=== PATIENT | female | born 1985 | race Caucasian/White ===

== ENCOUNTER → 2024-07-08 15:34 | Outpatient (BNVA) | payer MEDICAID, SELFPAY | PROVIDERS: Family Provider Urology; PCP Urology; Visit Provider Nurse Practitioner Women's Health | DX: N93.9 Abnormal uterine and vaginal bleeding, unspecified (principal) | CPT/HCPCS: 85025 ==

== ENCOUNTER → 2024-07-13 10:04 | Outpatient (BNVA) | payer MEDICAID, SELFPAY | PROVIDERS: Family Provider Urology; PCP Urology; Visit Provider Nurse Practitioner Women's Health | DX: N92.5 Other specified irregular menstruation (principal) | CPT/HCPCS: 76830 ==

== ENCOUNTER → 2024-08-03 16:43 | Outpatient (BNVA) | payer MEDICAID, SELFPAY | PROVIDERS: PCP Urology; Visit Provider Obstetrics & Gynecology | DX: N93.9 Abnormal uterine and vaginal bleeding, unspecified (principal) | CPT/HCPCS: 80053; 84443; 85025 ==

== ENCOUNTER 2024-08-04 08:56 | Day surgery (SDC) | payer MEDICAID, SELFPAY ==
[2024-08-04] VITALS (18 sets, daily range): BP systolic 150–191; BP diastolic 74–103; PULSE 62–103; RESP 13–27; TEMP 36.1–36.6; O2SAT 92–99; BMI 31.2
--- NOTE | 2024-08-04 01:04 | P.HP_ITS ---
Same Day Surgery H&P Indication for Procedure/HPI DATE OF PROCEDURE: August 04, 2024 CHIEF COMPLAINT/INDICATIONFOR SURGICAL PROCEDURE: abnormal uterine bleeding PREOP DIAGNOSIS: abnormal uterine bleeding PLANNED PROCEDURE: Operation Date: 08/04/24 10:20 Proposed Procedures p Hysteroscopy w/ Endometrial Sampling 43452, 85870, N93.9, N94.4(Not Applicabl e) - Sky Driscoll MD s possible endometrial polyp sampling(Not Applicable) - Sky Driscoll MD s Endometrial Ablation(Not Applicable) - Sky Driscoll MD 39 y.o. with prolonged uterine bleeding now scheduled for hysteroscopy, endometrial sampling, possible endometrial polypectomy; endometrial ablation Medications/Allergies* Allergies/Adverse Reactions Allergy/AdvReac Type Severity Reaction Status Date / Time Penicillins Allergy ADR-Itching Verified 07/27/24 10:33 Pertinent History/Comorbid Conditions* Surgical History (Updated 07/08/24 @ 14:59 by Amanda Mcfarland NP) History of tubal ligation History of appendectomy Family History (Updated 07/08/24 @ 14:34 by Therese Loaiza CMA) Denies family history of Colon cancer Ovarian cancer Diabetes Heart disease Hyperlipidemia Breast cancer Hypertension Uterine cancer Thyroid disease Stroke Social History Smoking and tobacco/nicotine status: never used tobacco/nicotine Pertinent Exam Findings alert, oriented x 3, clear to auscultation bilaterally and regular rate & rhythm Recommendations Surgery/Procedure today Coding Level of Care Code Acute Code for Chg Fwd
[2024-08-04 09:18] LABS: OR HCG Qualitative Urine Negative (Negative)
[2024-08-04] MEDS: scopolamine 1 mg PATCH 1 PATCH TRANSDERMA (09:27)
[2024-08-04] MEDS: sodium chloride 0.9% 1,000 ML 30 ML IV (09:29)
--- NOTE | 2024-08-04 09:38 | W.PM.OPSUD ---
Surgery/Procedure H&P Update DATE OF PROCEDURE: August 04, 2024 DATE H&P PERFORMED: 08/04/24 H&P UPDATE INFORMATION: I have reviewed H&P completed within last 30 days, I have examined patient prior to procedure and No changes to prior documentation PREOP DIAGNOSIS: abnormal uterine bleeding PLANNED PROCEDURE: Operation Date: 08/04/24 10:20 Proposed Procedures p Hysteroscopy w/ Endometrial Sampling 55447, 09237, N93.9, N94.4(Not Applicable) - Sky Driscoll MD s possible endometrial polyp sampling(Not Applicable) - Sky Driscoll MD s Endometrial Ablation(Not Applicable) - Sky Driscoll MD
--- NOTE | 2024-08-04 10:07 | ANES.PREANE2 ---
Pre-Anesthetic Assessment Height/Weight: Height 5 ft 2 in Weight 171 lb Temp Pulse Resp BP Pulse Ox O2 Del Method 97.8 F 102 H 16 158/102 99 Room Air 08/04/24 09:14 08/04/24 09:14 08/04/24 09:14 08/04/24 09:14 08/04/24 09:14 08/04/24 09:14 Preop Diagnosis: abnormal uterine bleeding Operation Date: 08/04/24 10:20 Proposed Procedures p Hysteroscopy w/ Endometrial Sampling 58109, 66262, N93.9, N94.4(Not Applicable) - Sky Driscoll MD s possible endometrial polyp sampling(Not Applicable) - Sky Driscoll MD s Endometrial Ablation(Not Applicable) - Sky Driscoll MD Was Beta Marianne taken within 24 hours: N/A Was Clonidine taken within 24 hours: N/A Last intake: Intake Last Liquid Date 08/03/24 Last Liquid Time 21:00 Last Solid Date 08/03/24 Last Solid Time 18:00 Social No alcohol and No tobacco Exam alert, oriented x 3, clear to auscultation bilaterally and regular rate & rhythm Airway Submandibular: within normal limits Cervical ROM: within normal limits Mallampati: Class II Dentition: full Anesthetic Plan ASA status: 1 Anesthesia: General Other: No prior issues with anesthesia NPO since yesterday evening Denies any cardiac or pulmonary issues METs greater than 4 Plan for general anesthesia Medications/Allergies Home Medications ?Medication ?Instructions ?Recorded ?Confirmed ?Last Taken ?Type medroxyprogesterone 10 mg tablet 10 mg PO BID #60 tabs 07/27/24 08/03/24 08/03/24 Rx (Provera) Allergies Allergy/AdvReac Type Severity Reaction Status Date / Time Penicillins Allergy ADR-Itching Verified 07/27/24 10:33 Current Medications Generic Name Dose Route Start Last Admin Trade Name Freq PRN Reason Stop Dose Admin Sodium Chloride 1,000 mls @ 30 mls/hr 08/04/24 09:15 08/04/24 09:29 Sodium Chloride 0.9% IV 08/05/24 09:14 30 mls/hr .Q24H KING Administration PFSH Anesthesia Surgical History History of tubal ligation History of appendectomy Family History Denies family history of Colon cancer Ovarian cancer Diabetes Heart disease Hyperlipidemia Breast cancer Hypertension Uterine cancer Thyroid disease Stroke Social History Smoking and tobacco/nicotine status: never used tobacco/nicotine Female Reproductive History Date of last menstrual period: 07/11/24 Data Anesthesia Cardiac Studies: No Data to Display
[2024-08-04] MEDS: fentaNYL 50 mcg/mL INJ 2mL IVP ×2 (11:27→11:43)
[2024-08-04] MEDS: hyDRALAzine 20 mg/mL INJ 1 mL 10 MG IVP (12:04)
--- NOTE | 2024-08-04 12:05 | P.OP_ITS ---
Operative Report Date of procedure: August 04, 2024 Pre-op diagnosis: heavy menstrual bleeding Post-op diagnosis: same Post-op findings: 3 cm endocervical polyp minimal endometrial tissue intact endometrial cavity following endometrial ablation adequate global charring following endometrial ablation Procedure done: Removal of endocervical polyp Hysteroscopy Endometrial curettage Endometrial ablation with Novasure device Implants: none Specimens removed/disposition: endocervical polyp endometrial tissue Surgeon: Sky Driscoll MD Anesthesia: MAC Estimated blood loss (mL): 0 Complications: none Findings: 3 cm endocervical polyp minimal endometrial tissue intact endometrial cavity following endometrial ablation adequate global charring following endometrial ablation Condition: stable Disposition: PACU Brief History: 39 y.o. with heavy and prolonged uterine bleeding Procedure: Informed consent signed. Patient was taken to the operating room. Anesthesia was induced. Patient was placed in dorsolithotomy position, prepped and draped for hysteroscopy. A bivalve speculum was placed in the vagina. There was a 3 cm endocervical polyp seen, this was removed. The anterior lip of the cervix was grasped with a sharp-toothed tenaculum. The cervix was widely open. A hysteroscope was placed into the endometrial cavity. The endometrial cavity was seen to be normal. There was minimal endometrial tissue. The hysteroscope was then removed. Endometrial curettage was done and endometrial tissue was sent to path ology. Endometrial ablation was then performed using the Novasure device. The Novasure device was then primed and inserted into the endometrial cavity. The cervical occlusion sleeve was advanced. Cavity integrity test was done. The device was activated for 100 seconds. The Novasure device was then removed. Repeat hysteroscopy showed an intact endometrial cavity with adequate global endometrial ablation. All instruments were then removed. The sharp-toothed tenaculum was removed. There was no bleeding from the endometrial cavity or cervix. The patient was then placed supine and awakened and taken to the PACU. Postop condition: stable EBL: none Sponge and instruments counts were normal x 2 Complications: none
--- NOTE | 2024-08-04 12:12 | PC.NURSE ---
1137 - Dr Prakash notified of pts BP - orders rec'd
[2024-08-04] MEDS: HYDROmorphone 0.5 MG/0.5 ML INJ IVP (12:26)
[2024-08-04] MEDS: acetaminophen 1,000 MG/100 ML PIGGYBACK 400 MG IV (12:59)
== END 2024-08-04 13:24 | disposition home or self-care (01) ==
PROVIDERS: Student in an Organized Health Care Education/Training Program; PCP Nurse Practitioner Family; Visit Provider Obstetrics & Gynecology
PROC: 0UJD8ZZ Inspection of Uterus and Cervix, Via Natural or Artificial Opening Endoscopic (ICD-10-PCS; CPT 58555; principal; 2024-08-04 10:10)
PROC: (CPT 58563; 2024-08-04 10:10)
PROC: (CPT 58999; 2024-08-04 10:10)
DX: N84.0 Polyp of corpus uteri (principal); N92.0 Excessive and frequent menstruation with regular cycle; Z88.0 Allergy status to penicillin
CPT/HCPCS: 58563; 81025; 88305; J0131; J0360; J1100; J1171; J1885; J2250; J2405; J2704; J3010; J7030; J9999

== ENCOUNTER 2024-11-10 10:56 | Observation (INO) | payer MEDICAID, SELFPAY ==
--- NOTE | 2024-11-05 09:17 | P.ANESASSM_ITS ---
Pre-Anesthetic Assessment Height/Weight: Height 1.57 m Operation Date: 11/10/24 13:15 Proposed Procedures p Laparoscopic Assist Vaginal Hysterectomy 40215 N94.6 N93.9(Not Applicable) - Sky Driscoll MD Familial anesthetic complications: None Was Beta Marianne taken within 24 hours: N/A Was Clonidine taken within 24 hours: N/A Last intake: > 8 hrs Social No alcohol and No tobacco Exam alert, oriented x 3, clear to auscultation bilaterally and regular rate & rhythm Airway Mallampati: Class IV Dentition: full Anesthetic Plan ASA status: 1 Anesthesia: General Risk of > 500 ml blood loss (7ml/kg in children): No Medications/Allergies Home Medications ?Medication ?Instructions ?Recorded ?Confirmed ?Last Taken ?Type No Known Home Medications 10/19/2410/27 Unknown History Allergies Allergy/AdvReac Type Severity Reaction Status Date / Time Penicillins Allergy ADR-Itching Verified 10/19/24 10:04 [facility] Anesthesia Medical History No pertinent past medical history Neghx: htn, dm thyroid, dvt/pe Surgical History S/P endometrial ablation hysteroscopy, D&C, polypectomy, and ablation for AUB Status post hysteroscopic polypectomy hysteroscopy, D&C, polypectomy, and ablation for AUB H/O dilation and curettage hysteroscopy, D&C, polypectomy, and ablation for AUB History of hysteroscopy hysteroscopy, D&C, polypectomy, and ablation for AUB History of tubal ligation History of appendectomy Family History Denies family history of Colon cancer Ovarian cancer Diabetes Heart disease Hyperlipidemia Breast cancer Hypertension Uterine cancer Thyroid disease Stroke Social History Smoking and tobacco/nicotine status: never used tobacco/nicotine
--- NOTE | 2024-11-09 22:44 | W.PM.OPSFHP ---
Same Day Surgery H&P Indication for Procedure/HPI DATE OF PROCEDURE: November 09, 2024 CHIEF COMPLAINT/INDICATIONFOR SURGICAL PROCEDURE: menometrorrhagia PREOP DIAGNOSIS: menometrorrhagia PLANNED PROCEDURE: Operation Date: 11/10/24 07:00 Proposed Procedures p Laparoscopic Assist Vaginal Hysterectomy 13996 N94.6 N93.9(Not Applicable) - Sky Driscoll MD 39 y.o. h/o heavy and prolonged periods h/o BTL h/o endometrial ablation has continued to bleed now scheduled for hysterectomy Medications/Allergies* Home Medications ?Medication ?Instructions ?Recorded ?Confirmed ?Type No Known Home Medications 10/19/24 11/05/24 History Allergies/Adverse Reactions Allergy/AdvReac Type Severity Reaction Status Date / Time Penicillins Allergy ADR-Itching Verified 10/19/24 10:04 Pertinent History/Comorbid Conditions* Medical History (Updated 08/11/24 @ 08:56 by Amanda Mcfarland NP) No pertinent past medical history Neghx: htn, dm thyroid, dvt/pe Surgical History (Updated 08/11/24 @ 08:56 by Amanda Mcfarland NP) S/P endometrial ablation hysteroscopy, D&C, polypectomy, and ablation for AUB Status post hysteroscopic polypectomy hysteroscopy, D&C, polypectomy, and ablation for AUB H/O dilation and curettage hysteroscopy, D&C, polypectomy, and ablation for AUB History of hysteroscopy hysteroscopy, D&C, polypectomy, and ablation for AUB History of tubal ligation History of appendectomy Family History (Updated 07/08/24 @ 14:34 by Therese Loaiza CMA) Denies family history of Colon cancer Ovarian cancer Diabetes Heart disease Hyperlipidemia Breast cancer Hypertension Uterine cancer Thyroid disease Stroke Social History Smoking and tobacco/nicotine status: never used tobacco/nicotine Pertinent Exam Findings alert, oriented x 3, clear to auscultation bilaterally and regular rate & rhythm Recommendations Surgery/Procedure today Coding Level of Care Code Acute Code for Chg Fwd
[2024-11-10] VITALS (20 sets, daily range): BP systolic 128–163; BP diastolic 73–105; PULSE 84–108; RESP 13–19; TEMP 36.5–37; O2SAT 91–99; BMI 31.6
[2024-11-10 06:31] LABS: OR HCG Qualitative Urine Negative (Negative)
--- NOTE | 2024-11-10 06:38 | P.ANESUD_ITS ---
Pre-Anesthetic Update Pre-Anesthetic Assessment: Date of Surgery/Procedure: 11/10/24 Preop Kelsie gnosis: menometrorrhagia Proposed Procedure: Operation Date: 11/10/24 07:00 Proposed Procedures p Laparoscopic Assist Vaginal Hysterectomy 73736 N94.6 N93.9(Not Applicable) - Sky Driscoll MD Changes from Pre-Anesthetic Assessment: No prior issues with anesthesia No changes since patient was seen in preop clinic. No recent illnesses. Labs reviewed and acceptable for procedure. Type and screen performed. ASA 1. Plan for GETA Last Intake: Intake Last Liquid Date 11/09/24 Last Liquid Time 22:00 Last Solid Date 11/09/24 Last Solid Time 18:00 Vitals: Temperature 98.2 F 11/10/24 06:05 Temperature Source Temporal Artery S can 11/10/24 06:05 Pulse Rate 107 H 11/10/24 06:05 Respiratory Rate 17 11/10/24 06:05 Blood Pressure 149/105 11/10/24 06:05 Blood Pressure Loly n 119 11/10/24 06:05 Pulse Oximetry 99 11/10/24 06:05 Oxygen Delivery Me thod Room Air 11/10/24 06:06
--- NOTE | 2024-11-10 06:50 | W.PM.OPSUD ---
Surgery/Procedure H&P Update DATE OF PROCEDURE: November 10, 2024 DATE H&P PERFORMED: 11/09/24 H&P UPDATE INFORMATION: I have reviewed H&P completed within last 30 days, I have examined patient prior to procedure and No changes to prior documentation PREOP DIAGNOSIS: menometrorrhagia PLANNED PROCEDURE: Operation Date: 11/10/24 07:00 Proposed Procedures p Laparoscopic Assist Vaginal Hysterectomy 31328 N94.6 N93.9(Not Applicable) - Sky Driscoll MD
[2024-11-10] MEDS: metroNIDAZOLE IV 500 MG/100 ML PREMIX 100 MG IV (07:01)
[2024-11-10] MEDS: lidocaine-epi 2% PF 1:200,000 20 mL SDV XX ×2 (07:41→08:47)
--- NOTE | 2024-11-10 10:44 | PM.OP2 ---
Brief Operative Note Date of procedure: 11/10/24 Pre-op diagnosis: menometrorrhagia Post-op diagnosis: same Procedure Done: laparoscopic-assisted vaginal hysterectomy Surgeon: Sky Driscoll Estimated blood loss (mL): 250 Complications: none Post-op Plan: postoperative care Condition: stable Disposition: floor
--- NOTE | 2024-11-10 11:05 | ANE.PACU2 ---
Inpatient post-anesthesia follow up: Airway intact: Yes Vital signs: Temperature 98.0 F Pulse Rate 90 Respiratory Rate 16 Blood Pressure 146/82 Pulse Oximetry 94 Oxygen Delivery Me thod Room Air Oxygen Flow Rate Fraction of Inspir ed Oxygen Hydration adequate: Yes Nausea and vomiting: No Pain level: 1 Mental status: Baseline
--- NOTE | 2024-11-10 11:50 | PM.OP ---
Operative Report Date of procedure: November 10, 2024 Pre-op diagnosis: menorrhagia Post-op diagnosis: same Post-op findings: mildly enlarged uterus Normal ovaries Procedure done: Laparoscopic assisted vaginal hysterectomy Implants: none Specimens removed/disposition: uterus Surgeon: Sky Driscoll MD Anesthesia: General Estimated blood loss (mL): 250 Complications: none Findings: mildly enlarged uterus Normal ovaries Condition: stable Disposition: PACU Brief History: 39 y.o. with heavy periods, not relieved with endometrial ablation Procedure: The patient was taken to the operating room, placed supine on the table. General endotracheal anesthesia was induced. A ortiz catheter was placed which drained clear urine. The patient was placed in dorsolithotomy position for laparoscopic surgery. The abdomen and perineum were prepped and draped in the usual sterile fashion. A Zumi uterine elevator was placed via the cervix for manipulation of the uterus. An umbilical skin incision was made measuring approximately 1 cm. A Veress needle was inserted. After confirming intraperitoneal entry, a pneumoperitoneum was achieved. The Veress needle was removed. A trocar with sheath was placed. A laparoscope was inserted and used to visualize the pelvic organs. Normal ovaries were seen. The uterus was moderately enlarged with irregularly shaped fibroids. There was evidence of previous bilateral tubal ligation. The liver edge was normal. Two additional skin incisions were made measuring 0.5 cm each in the suprapubic and left lower quadrant. 5 mm trocars with sheaths were inserted via these incisions under laparoscopic visualization. A Ligasure device and endograsper were placed. There was mild adhesions from the bowel to the anterior abdominal wall. These were removed without any injury to the bowel. The Ligasure device was used to divide the round ligaments on both sides followed by the uteroovarian ligaments. These were successfully coagulated and divided without any bleeding. It was then decided to proceed vaginally to complete the vaginal hysterectomy portion of the procedure. The pneumoperitoneum was allowed to escape. The Zumi was removed. A vaginal Bookwalter retractor was placed. The cervicovaginal junction was incised and the anterior and posterior cul-de-sacs were entered without any injury to the underlying organs including the bowel and the bladder. The uterine vessels on both sides were then divided and coagulated without any difficulties. The uterus was removed. No bleeding was seen. The vaginal cuff was then closed using a running suture of O-Vicryl. The pneumoperitoneum was re-instituted and the pelvis was examined using the laparoscope to confirm good hemostasis. Following this, all instruments were removed from the abdomen after the pneumoperitoneum was allowed to escape. The laparoscopic skin incisions were then closed using 4-O skin sutures. The patient was placed supine and taken to the recovery room. Postoperative condition stable EBL: 250 cc Complications: none To PACU in good condition
[2024-11-10] MEDS: HYDROcodone-acetaminophen 5-325 mg Tablet PO ×2 (12:30→20:12)
[2024-11-10] MEDS: ondansetron 2 mg/ML SDV 2 mL 4 MG IVP (16:05)
[2024-11-11 04:18] VITALS: BP 128/78; PULSE 86; RESP 16; O2SAT 94
[2024-11-11] MEDS: HYDROcodone-acetaminophen 5-325 mg Tablet PO (04:23)
[2024-11-11 06:03] LABS: Hematocrit 33.4 % (36-47); Hemoglobin 10.00 g/dL (11.27-16.99); Mean Corpuscular HGB Conc 29.9 g/dL (30-55); Mean Corpuscular Hemoglobin 23.9 pg (27-33); Mean Corpuscular Volume 79.9 fl (85-98); Platelet Count 256 10^3/cmm (157-399); Red Blood Count 4.18 10^6/uL (3.85-5.65); White Blood Count 9.75 10^3/uL (3.29-11.43)
[2024-11-11 11:56] VITALS: BP 143/74; PULSE 100; RESP 16; TEMP 36.9; O2SAT 94
== END 2024-11-11 12:05 | disposition home or self-care (01) ==
LOC: OBGYN 10:56
PROVIDERS: Student in an Organized Health Care Education/Training Program; Admitting Provider Obstetrics & Gynecology; PCP Urology; Visit Provider Obstetrics & Gynecology
PROC: 0UT9FZZ Resection of Uterus, Via Natural or Artificial Opening With Percutaneous Endoscopic Assistance (ICD-10-PCS; CPT 58550; principal; 2024-11-10 07:00)
DX: N72 Inflammatory disease of cervix uteri (principal); N84.0 Polyp of corpus uteri; N92.1 Excessive and frequent menstruation with irregular cycle
CPT/HCPCS: 58550; 36415; 81025; 85027; 86850; 86900; 88307; A4216; G0378; J0131; J1100; J1171; J1885; J2250; J2371; J2405; J2704; J3010; J3475; J3490; J7030; J7121; J9999